=== PATIENT | male | born 1975 | race Caucasian/White ===

== ENCOUNTER → 2019-08-10 09:30 | Oncology outpatient (ONC) | payer SELFPAY ==
[2019-08-09 09:39] VITALS: BP 123/73; PULSE 51; RESP 16; TEMP 36.8; O2SAT 98
[2019-08-09] MEDS: methylPREDNISolone 1,000 MG in SODIUM CHLORIDE 0.9% 250 ML 258 ML IV (09:56)
[2019-08-10 09:43] VITALS: BP 125/79; PULSE 53; RESP 16; TEMP 36.8; O2SAT 96
[2019-08-10] MEDS: methylPREDNISolone 1,000 MG in SODIUM CHLORIDE 0.9% 250 ML 258 ML IV (10:03)
[2019-08-11 09:31] VITALS: BP 126/80; PULSE 52; RESP 16; TEMP 37
[2019-08-11] MEDS: methylPREDNISolone 1,000 MG in SODIUM CHLORIDE 0.9% 250 ML 258 ML IV (09:48)
== END ==
PROVIDERS: Family Provider Family Medicine; PCP Family Medicine; Referring Provider Ophthalmology; Visit Provider Ophthalmology
DX: H46.8 Other optic neuritis (principal)
CPT/HCPCS: 96365; 96366; J2930